=== PATIENT | female | born 2000 ===

== ENCOUNTER 2020-07-13 11:03 | Inpatient (IN) | payer OTHER ==
[~2020-07-13] VITALS: Ht 165.1 cm; Wt 70.8 kg
[~2020-07-13 11:03] MED LIST: ARNUITY ELLIP100 MCG
[2020-07-15] MEDS ORDERED: LOMAIRA8 MG (08:03)
== END 2020-07-16 17:49 | disposition home or self-care (01) | DRG 343 ==
LOC: ER 11:03 → SURH 07-14 11:12
PROVIDERS: ADMIT Surgery; ATTEND Surgery
PROC: 0DTJ4ZZ Resection of Appendix, Percutaneous Endoscopic Approach (ICD-10-PCS; principal; 2020-07-14)
DX: K35.890 Other acute appendicitis without perforation or gangrene (principal); N83.202 Unspecified ovarian cyst, left side; M54.5 Low back pain